=== PATIENT | male | born 1965 | race Two or more races ===

== ENCOUNTER 2022-05-07 13:19 | Inpatient (IN) | payer BC, SELFPAY ==
--- NOTE | ~2022-05-07 | CT_ITS ---
EXAMINATION: CT ABDOMEN AND PELVIS WITHOUT CONTRAST CLINICAL INFORMATION: Abdominal pain. Back pain. COMPARISON: None. TECHNIQUE: Multidetector volumetric imaging was performed from the superior aspect of the liver through the pubic symphysis. Sagittal and coronal reformatted images were obtained on the technologist's workstation. This CT examination was performed using dose optimization techniques as appropriate, variously including the following: *Automated exposure control *Adjustment of mA and/or kV according to patient size (this includes techniques or standardized protocols for targeted exams where dose is matched to indication/reason for exam; i.e. extremities or head) *Use of iterative reconstruction technique DLP: 387 mGy-cm FINDINGS: LUNG BASES: The visualized lung bases are unremarkable. LIVER, GALLBLADDER, AND BILIARY TREE: The liver is normal in size, shape, and attenuation. No focal hepatic lesion or biliary ductal dilatation is present. The gallbladder is unremarkable with no evidence of radiopaque gallstones, gallbladder wall thickening, or obvious pericholecystic inflammatory changes. PANCREAS: Unremarkable. SPLEEN: Unremarkable. ADRENAL GLANDS: Unremarkable. KIDNEYS AND URETERS: The kidneys are normal in size, shape, and attenuation. Right ureterovesicular junction stone measuring up to 0.3 cm with moderate proximal right-sided hydroureter nephrosis. Right periureteral and perinephric stranding. No additional renal or ureteral stone. BLADDER: Unremarkable. GASTROINTESTINAL TRACT: Small, sliding hiatal hernia. No bowel wall thickening or inflammatory change. No small or large bowel obstruction. Partially visualized, unremarkable appendix. PERITONEAL CAVITY: No intra-abdominal free air or free fluid. No intra-abdominal mass or organized fluid collection/abscess formation. ABDOMINAL WALL: No significant hernia is appreciated. LYMPH NODES: No significant lymphadenopathy. VASCULAR: No abdominal aortic dilatation. Scattered atherosclerotic calcifications. PELVIC VISCERA: Calcifications within the central prostate. OSSEOUS STRUCTURES: Unremarkable. CT/CT abdomen pelvis wo IV con IMPRESSION: 1. Obstructing right ureterovesicular junction stone measuring 0.3 cm with moderate proximal right-sided hydroureter nephrosis and periureteral/perinephric stranding. 2. No additional renal or ureteral stone. Unremarkable urinary bladder. 3. Small, sliding hiatal hernia. Fleischner guidelines were followed.
--- NOTE | ~2022-05-07 | FL_ITS ---
EXAMINATION: XR FL WITH IMAGES CLINICAL INFORMATION: Cystoscopy, ureteroscopy, laser and retrograde exam. COMPARISON: Previous CT of the abdomen and pelvis from yesterday. TECHNIQUE: Fluoroscopy performed by Dr. Jaspal Jaramillo. Fluoroscopy Time: 31 seconds. Cumulative Dose: 7.4 mGy. Images: 3. FINDINGS: Initial image demonstrates contrast opacification of the right ureter. Second image demonstrates a wire in the right ureter. Third image demonstrates an internal ureteral stent in the right ureter and bladder. FL/FL guidance in OR IMPRESSION: Fluoroscopy guidance for urologic procedure.
[2022-05-07 14:03] VITALS: BP 137/62; PULSE 54; RESP 20; TEMP 36.3; O2SAT 100; BMI 24.3
[2022-05-07 14:43] LABS: MANUAL DIFF FLAG NO
[2022-05-07 14:44] LABS: Basophils Absolute Auto 0.1 X10*3/uL (0.0-0.2); Basophils Percent Auto 0.3 % (0-2); Hematocrit 47.1 % (42.0-52.0); Hemoglobin 15.8 g/dl (14.0-18.0); Imm Gran Abs Auto 0.12 X10*3/uL (0.00-0.03); Imm Gran Pct Auto 0.6 % (0.0-0.4); Lymphocytes Percent Auto 9.6 % (20-40); Mean Corpuscular HGB Conc 33.5 g/dl (31.0-36.0); Mean Corpuscular Hemoglobin 29.6 pg (27.0-33.0); Mean Corpuscular Volume 88.2 fL (80.0-98.0); Mean Platelet Volume 8.6 fL (9.4-12.4); Monocytes Absolute Auto 0.9 X10*3/uL (0.1-1.2); Monocytes Percent Auto 4.2 % (2-11); Neutrophils Absolute Auto 17.9 x10*3/uL (2.0-8.3); Neutrophils Percent Auto 85.3 % (45-73); Platelet Count 367 X10*3/uL (160-400); Red Blood Count 5.34 X10*6/uL (4.60-5.80); Red Cell Distribution Width 14.1 % (11.0-16.0)
[2022-05-07 15:00] LABS: Alanine Aminotransferase 14 U/L (0-40); Albumin Level 4.4 g/dL (3.5-5.0); Alkaline Phosphatase 96 U/L (39-117); Anion Gap 19 (12-20); Aspartate Amino Transferase 17 U/L (5-37); Bilirubin Direct 0.3 mg/dL (0.0-0.5); Bilirubin Total 0.7 mg/dL (0.0-1.0); Blood Urea Nitrogen 20 mg/dL (9-16); Calcium 9.4 mg/dL (8.4-10.2); Carbon Dioxide 22 mmol/L (22-29); Chloride 105 mmol/L (96-108); Creatinine Clr Calc Pharmacy 69.4; Estimated Glomerular Filt Rate > 60; Glucose Random 156 mg/dL (60-115); Lipase 21 U/L (8-78); Potassium 4.5 mmol/L (3.3-5.1); Sodium 141 mmol/L (135-145); Total Protein 7.4 g/dL (6.5-8.0)
--- NOTE | 2022-05-07 18:55 | ED.GENADULT ---
HPI - General Adult General Chief complaint: Nausea/Vomiting/Diarrhea Stated complaint: Vomiting/Fever/Back pain Time Seen by Provider: 05/07/22 18:55 Source: patient Mode of arrival: ambulatory Limitations: no limitations History of Present Illness HPI narrative: Patient is a 56 year old male presenting to the emergency department today with right sided flank pain and nausea. Patient states that he has been having right sided flank pain since this morning with nausea. Patient states that he does not have a history of kidney stones. Patient states that he has already had his appendix removed. Patient denies any dizziness, lightheadedness, vomiting, fever, chills, blurry vision, double vision, loss of vision, chest pain, difficulty breathing, shortness of breath, night sweats, pain with urination, increased urinary frequency, increased urinary urgency, blood in his urine or stool, syncope or a near syncopal episode, recent trauma or falls, bowel incontinence, bladder incontinence, bowel retention, bladder retention, or any other complaints at this time. Onset (ago): hour(s) Location: abdomen Radiation: non-radiation Severity: mild Severity scale (1-10): 4 Quality: aching Pain Consistency: constant Relieving factors: none Exacerbating factors: none Associated symptoms: denies other symptoms Treatments prior to arrival: none Related Data Previous Rx's Medication Instructions Recorded naproxen 500 mg tablet 500 mg PO BID 7 days #14 tabs 05/07/22 tamsulosin 0.4 mg capsule 0.4 mg PO DAILY #7 caps 05/07/22 Allergies Allergy/AdvReac Type Severity Reaction Status Date / Time Penicillins [PENICILLINS] Allergy Unknown RASH Verified 05/07/22 14:06 Review of Systems Constitutional: Constitutional: Reports no additional constitutional complaints, Denies chills, Denies fever(s) and Denies night sweats Eyes: Eyes: Reports no additional eye complaints, Denies blurry vision, Denies change in vision, Denies diplopia, Denies eye discharge, Denies loss of vision and Denies eye pain ENT: Denies dizziness Cardiovascular: Cardiovascular: Reports no additional cardiovascular complaints, Denies chest pain, Denies lightheadedness, Denies Loss of Consciousness and Denies dyspnea Respiratory: Respiratory: Reports no additional respiratory complaints and Denies dyspnea Gastrointestinal: Gastrointestinal: Reports no additional gastrointestinal complaints, Reports abdominal pain (right sided flank pain), Denies melena, Denies hematochezia, Denies change in bowel habits and Denies change in stool character Genitourinary: Genitourinary: Reports no additional male genitourinary complaints, Denies hematuria, Denies oliguria, Denies difficulty urinating, Denies dysuria, Denies urinary frequency, Denies urinary hesitancy, Denies urinary incontinence and Denies urinary urgency Musculoskeletal: Musculoskeletal: Reports no additional musculoskeletal complaints, Denies numbness and Denies tingling Neurologic: Denies dizziness, Denies loss of vision, Denies numbness and Denies tingling Psychiatric: Psychiatric: Reports no additional psychiatric complaints Endocrine: Endocrine: Reports no additional endocrine complaints Hematologic/Lymphatic: Hematologic/Lymphatic: Reports no additional hematologic/lymphatic complaints Allergic/Immunologic: Allergic/Immunologic: Reports no additional allergic/immunologic complaints [facility] Past Medical History Attestation statement: The following information was validated with the patient. Source: old records reviewed Social History Social History Advance Directives: No Advance Directives Information Provided: No Physical Exam ED Vital Signs: Vital Signs - 24 hr 05/07/22 14:03 05/07/22 20:32 Temperature 97.4 F Pulse Rate 54 69 Respiratory Rate 20 16 Blood Pressure 137/62 139/72 Pulse Oximetry 100 98 Oxygen Delivery Method Room Air Room Air BMI result Body Mass Index 24.3 Const General: cooperative, no acute distress, alert and awake Nutritional Appearance: well nourished Orientation/consciousness: patient oriented x3 Limitations: no limitations [facility] Head: Yes normal to inspection and Yes atraumatic Ears: hearing grossly normal bilaterally and external ears normal General nose exam: Normal external nose present, no nasal discharge noted and no epistaxis Face and sinus: Yes normal facial exam, No abrasion and No laceration Mouth: Normal oral and palatal mucosa present, no drooling and no muffled voice Eyes General: appearance normal, both eyes and all related structures Periorbital: periorbital findings normal Eyelids: Yes eyelids normal Conjunctivae: conjunctivae normal Pupils: Equal, round and reactive pupils present EOM: EOMs intact bilaterally Neck Neck: Yes normal visual inspection, Yes full ROM and Yes no lymphadenopathy Chest Chest palpation & inspection: normal inspection of the chest Resp Effort & Inspection: normal respiratory effort and able to speak in complete sentences Auscultation: clear to auscultation bilaterally Cardio Rate: regular rate Rhythm: regular rhythm GI Inspection: Yes normal to inspection Palpation (GI): Soft to palpation, not firm, nontender, no guarding and not rigid General: Yes no CVA tenderness Back/Spine/Pelvis Back: no CVA tenderness Cervical Spine: normal cervical lordosis Thoracic/Lumbar Spine: thoracic and lumbar spine normal to inspection and thoraco-lumbar ROM normal Neuro General: patient oriented x3 and moves all extremities Cranial nerves: Yes Equal, round and reactive pupils present Cognition (Neuro): normal cognition Motor exam (neuro): 5/5 motor strength present throughout Sensory Exam: Normal double simultaneous stimulation for sensation Coordination: [id number] test normal Extrem General: Yes normal to inspection, Yes full ROM and Yes capillary refill normal Psych Appearance: grossly normal Mental Status: mental status grossly normal Affect: normal affect Attitude: cooperative Thought process: Normal thought process present Thought content: Normal thought content present Insight: Good insight present (Psych) Medical Decision Making MDM Narrative Medical decision making narrative: Patient is a 56 year old male presenting to the emergency department today with right sided flank pain. Patient's physical exam was unremarkable. Patient's blood work showed an elevated WBC count of 21 but was otherwise unremarkable. Patient's abdomen/pelvis CT showed an obstructing right ureterovesicular junction stone measuring 0.3cm with moderate proximal right-sided hydroureter nephrosis and periureteral/perinephric stranding. I spoke to Dr. Jaramillo, the urologist toll transmission worker, who recommended that as long as the patient can tolerate PO intake and his urine is not infected, he can be discharged with flomax and naproxen. I explained my physical exam findings as well as all test results to the patient. I answered all questions asked by the patient. Patient received IM Toradol and ODT Zofran which he stated helped his symptoms significantly. I stressed the importance of the patient taking his medication as prescribed. I stressed the importance of the patient following up with his primary care provider. I stressed the importance of the patient returning to the emergency department immediately if his symptoms were to worsen or if he were to develop any dizziness, shortness of breath, difficulty breathing, chest pain, blurry vision, loss of vision, nausea, vomiting, abdominal pain, fever, chills, back pain, or any other complaints. Patient verbalized agreement and understanding with this treatment plan and discharge. Medical Records Medical records reviewed: Yes I reviewed the patient's medical records. Lab Data Lab results reviewed: Yes I reviewed the patient's lab results. Result diagrams: 05/07/22 14:36 05/07/22 14:36 Labs: Lab Results 05/07/22 05/07/22 Range/Units 14:36 14:36 WBC 21.0 H (4.8-10.8) X10*3/uL RBC 5.34 (4.60-5.80) X10*6/uL Hgb 15.8 (14.0-18.0) g/dl Hct 47.1 (42.0-52.0) % MCV 88.2 (80.0-98.0) fL MCH 29.6 (27.0-33.0) pg MCHC 33.5 (31.0-36.0) g/dl RDW 14.1 (11.0-16.0) % Plt Count 367 (160-400) X10*3/uL MPV 8.6 L (9.4-12.4) fL Immature Gran % (Auto) 0.6 H (0.0-0.4) % Neut % (Auto) 85.3 H (45-73) % Lymph % (Auto) 9.6 L (20-40) % [place] % (Auto) 4.2 (2-11) % Eos % (Auto) 0.0 (0-4) % Baso % (Auto) 0.3 (0-2) % Lymph # (Auto) 2.0 (1.2-4.9) X10*3/uL [place] # (Auto) 0.9 (0.1-1.2) X10*3/uL Eos # (Auto) 0.0 (0.0-0.4) X10*3/uL Baso # (Auto) 0.1 (0.0-0.2) X10*3/uL Abs Immat Gran (auto) 0.12 H (0.00-0.03) X10*3/uL Absolute Neuts (auto) 17.9 H (2.0-8.3) x10*3/uL Absolute Nucleated RBC 0.000 (0.0-0.012) X10*3/uL Nucleated RBC % (auto) 0.0 (0.0-0.2) /100WBC Sodium 141 (135-145) mmol/L Potassium 4.5 (3.3-5.1) mmol/L Chloride 105 (96-108) mmol/L Carbon Dioxide 22 (22-29) mmol/L Anion Gap 19 (12-20) BUN 20 H (9-16) mg/dL Creatinine 1.11 (0.5-1.4) mg/dL Estim Creat Clear Calc 69.4 Estimated GFR > 60 Random Glucose 156 H (60-115) mg/dL Calcium 9.4 (8.4-10.2) mg/dL Total Bilirubin 0.7 (0.0-1.0) mg/dL Direct Bilirubin 0.3 (0.0-0.5) mg/dL AST 17 (5-37) U/L ALT 14 (0-40) U/L Alkaline Phosphatase 96 (39-117) U/L Total Protein 7.4 (6.5-8.0) g/dL Albumin 4.4 (3.5-5.0) g/dL Lipase 21 (8-78) U/L Imaging Data CT scan - abdomen: Attestation: I personally reviewed and interpreted this imaging study as follows: My impression: Right sided kidney stone. Radiologist's impression: EXAMINATION: CT ABDOMEN AND PELVIS WITHOUT CONTRAST? CLINICAL INFORMATION: Abdominal pain. Back pain.? COMPARISON: None.? TECHNIQUE: Multidetector volumetric imaging was performed from the superior aspect of the liver through the pubic symphysis. Sagittal and coronal reformatted images were obtained on the technologist's workstation.? This CT examination was performed using dose optimization techniques as appropriate, variously including the following: *Automated exposure control *Adjustment of mA and/or kV according to patient size (this includes techniques or standardized protocols for targeted exams where dose is matched to indication/reason for exam; i.e. extremities or head) *Use of iterative reconstruction technique DLP: 387 mGy-cm FINDINGS: LUNG BASES: The visualized lung bases are unremarkable.? LIVER, GALLBLADDER, AND BILIARY TREE: The liver is normal in size, shape, and attenuation. No focal hepatic lesion or biliary ductal dilatation is present. The gallbladder is unremarkable with no evidence of radiopaque gallstones, gallbladder wall thickening, or obvious pericholecystic inflammatory changes.? PANCREAS: Unremarkable.? SPLEEN: Unremarkable.? ADRENAL GLANDS: Unremarkable.? KIDNEYS AND URETERS: The kidneys are normal in size, shape, and attenuation. Right ureterovesicular junction stone measuring up to 0.3 cm with moderate proximal right-sided hydroureter nephrosis. Right periureteral and perinephric stranding. No additional renal or ureteral stone.? BLADDER: Unremarkable.? GASTROINTESTINAL TRACT: Small, sliding hiatal hernia. No bowel wall thickening or inflammatory change. No small or large bowel obstruction. Partially visualized, unremarkable appendix. PERITONEAL CAVITY: No intra-abdominal free air or free fluid. No intra-abdominal mass or organized fluid collection/abscess formation.? ABDOMINAL WALL: No significant hernia is appreciated.? LYMPH NODES: No significant lymphadenopathy. VASCULAR: No abdominal aortic dilatation. Scattered atherosclerotic calcifications. PELVIC VISCERA: Calcifications within the central prostate.? OSSEOUS STRUCTURES: Unremarkable.? CT/CT abdomen pelvis wo IV con IMPRESSION: 1. Obstructing right ureterovesicular junction stone measuring 0.3 cm with moderate proximal right-sided hydroureter nephrosis and periureteral/perinephric stranding. ? 2. No additional renal or ureteral stone. Unremarkable urinary bladder. ? 3. Small, sliding hiatal hernia.? ? Fleischner guidelines were followed. Dictated By: Ramakrishna Villatoro MD Signed By: Electronically signed by Ramakrishna Villatoro MD 05/07/222006 Discharge Plan Discharge Clinical Impression: Calculus, renal Patient Disposition: Home, Self-Care Instructions: Kidney Stones (ED) Additional Instructions: Follow up with your primary care provider and a urologist. Return to the emergency department immediately if your symptoms worsen or if you develop any dizziness, shortness of breath, difficulty breathing, chest pain, blurry vision, loss of vision, nausea, vomiting, abdominal pain, fever, chills, back pain, or any other complaints. Prescriptions: New naproxen 500 mg tablet 500 mg PO BID 7 Days Qty: 14 0RF tamsulosin 0.4 mg capsule 0.4 mg PO DAILY Qty: 7 0RF Referrals: [facility] [place] Group] (Call to establish and follow up with a primary care provider. If you already have a primary care provider, please call to follow up with them. ) [facility] [place], [facility] [Provider Group] (Call to establish and follow up with a primary care provider. If you already have a primary care provider, please call to follow up with them. ) [facility] [place] [facility] [Provider Group] (Call to establish and follow up with a primary care provider. If you already have a primary care provider, please call to follow up with them. ) [facility] [place] Urology Services [Provider Group] (Call to establish and follow up with a urologist.) Stand Alone Forms: Work/School Release Print Language: French
[2022-05-07] MEDS: Ondansetron ODT 4 MG TAB.RAPDIS TRANSLINGU (19:22)
[2022-05-07] MEDS: Ketorolac Tromethamine 15 MG/ML VIAL IM (19:22)
[2022-05-07 20:32] VITALS: BP 139/72; PULSE 69; RESP 16; O2SAT 98
[2022-05-08] VITALS (17 sets, daily range): BP systolic 87–146; BP diastolic 48–84; PULSE 56–79; RESP 12–30; TEMP 36.3–36.8; O2SAT 95–99; BMI 24.3
[2022-05-08 00:37] LABS: Appearance Urine Turbid; Color Urine Dark Yellow; Glucose Urine UA Negative (Negative); Leukocyte Esterase Urine Negative (Negative); Nitrite Urine Negative (Negative); PH 5.5 (5.0-9.0); Specific Gravity - Urine >= 1.030 (1.005-1.025); Urine Blood Large (3+) (Negative); Urine Ketones 15 mg/dL (Negative); Urine Protein 30 (1+) mg/dL (Neg-Trace)
[2022-05-08 00:47] LABS: Bacteria Urine None Seen (None Seen); Hyaline Casts Urine 0-2 /LPF (0-2); RBC Urine >20 /HPF (0-2); Squamous Epithelial Cell Urine 0-2 /HPF (0-2); WBC Urine 0-5 /HPF (0-5)
--- NOTE | 2022-05-08 01:21 | PC.NURSE ---
pt a&o, no sob or chest pain. Lab collected and sent. 20g IV placed in right AC.
--- NOTE | 2022-05-08 01:24 | P.HPHOSP_ITS ---
History of Present Illness Date of Service: 05/08/22 Chief Complaint: abd pain, n/v 56-year-old male with no significant past medical history presents to the hospital with complaints of right-sided flank pain, nausea and vomiting. Patient reports his symptoms started day of presentation, associated with significant nausea vomiting, decreased p.o. intake. Patient reports the pain to be 10/10, radiating to the groin, not relieved with [id number] pain medications, denies any fever or chills, reports no urinary urgency dysuria, or frequency. Patient denies any shortness of breath, no chest pain, no diarrhea constipation, and no lower extremity edema. No headache or change in vision. On arrival to the ED patient hemodynamically stable, afebrile, Labs are significant for WBC count of 21, hematocrit of 47.1, lactic acid of 2.2 that resolved after IV fluids, UA that is negative for any acute infection but is positive for RBC CT of the abdomen pelvis shows obstructing right UVJ stone measuring 0.3 cm with moderate proximal right-sided hydronephrosis and periureteral perinephric stranding Patient will be admitted for further management Review of Systems Review of Systems: Yes all other systems are reviewed and are negative PMFSH Medical History (Updated 05/08/22 @ 06:40 by Marcus Che MD) No pertinent past medical history Family History (Updated 05/08/22 @ 06:41 by Marcus Che MD) Other Cancer Pertinent family history: he does not know what type of cancer his mother had Surgical History (Updated 05/08/22 @ 06:40 by Marcus Che MD) No pertinent past surgical history Social History Advance Directives: No Advance Directives Information Provided: No Meds Allergies Allergy/AdvReac Type Severity Reaction Status Date / Time Penicillins [PENICILLINS] Allergy Unknown RASH Verified 05/07/22 14:06 Active Medications: Current Medications Acetaminophen (Acetaminophen 325 Mg Tablet) 650 mg PO Q6H PRN PRN Reason: Pain, Mild (Pain Scale 1-3) Docusate Sodium (Docusate Sodium 100 Mg Capsule) 100 mg PO DAILY PRN PRN Reason: Constipation Sodium Chloride (Ns) 1,000 mls @ 999 mls/hr IV .Q1H1M LILLIAN Stop: 05/08/22 02:00 Lactated Ringer's (Lr) 1,000 mls @ 100 mls/hr IVCONT .Q10H LILLIAN Morphine Sulfate (Morphine Sulfate 4 Mg/Ml Cartridge) 4 mg IVPUSH Q4H PRN; Protocol PRN Reason: Pain, Severe (Pain Scale 7-10) Ondansetron HCl (Ondansetron Hcl 4 Mg/2 Ml Vial) 4 mg IVPUSH Q8H PRN PRN Reason: Nausea and Vomiting Prochlorperazine Edisylate (Prochlorperazine Edisylate 10 Mg/2 Ml Vial) 5 mg IVPUSH Q4H PRN PRN Reason: Nausea and Vomiting Sodium Chloride (0.9 % Sodium Chloride Flush 3 Ml Syringe) 3 ml IVFLUSH QSHIFT [facility] Physical Exam Vital Signs and Narrative: Vital Signs: Last Vital Signs Temp 97.4 F 05/07/22 14:03 Pulse 69 05/07/22 20:32 Resp 16 05/07/22 20:32 BP 139/72 05/07/22 20:32 Pulse Ox 98 05/07/22 20:32 O2 Del Method 05/07/22 20:32 BMI result Body Mass Index 24.3 Const: General: cooperative and no acute distress Orientation/consciousness: patient oriented x3 Eyes: General: appearance normal, both eyes and all related structures Pupils: Equal, round and reactive pupils present Resp: Effort & Inspection: normal respiratory effort Auscultation: clear to auscultation bilaterally Cardio: Rate: regular rate Rhythm: regular rhythm GI: Palpation (GI): Soft to palpation Auscultation: normal bowel sounds : Other: Right CVA tenderness Skin: General skin exam: no rashes or lesions noted Neuro: General: patient oriented x3 Cranial nerves: Yes Equal, round and reactive pupils present Cognition (Neuro): normal cognition Extrem: General: Yes normal to inspection and Yes no pedal edema Results Labs CBC and Chem 7: 05/08/22 06:10 05/07/22 14:36 Labs: Laboratory Results - last 24 hr 05/07/22 05/07/22 05/08/22 14:36 14:36 00:31 MCV 88.2 MCH 29.6 MCHC 33.5 RDW 14.1 Plt Count 367 MPV 8.6 L Immature Gran % (Auto) 0.6 H Neut % (Auto) 85.3 H Lymph % (Auto) 9.6 L [place] % (Auto) 4.2 Eos % (Auto) 0.0 Baso % (Auto) 0.3 Lymph # (Auto) 2.0 [place] # (Auto) 0.9 Eos # (Auto) 0.0 Baso # (Auto) 0.1 Abs Immat Gran (auto) 0.12 H Absolute Neuts (auto) 17.9 H Absolute Nucleated RBC 0.000 Nucleated RBC % (auto) 0.0 Anion Gap 19 Estim Creat Clear Calc 69.4 Estimated GFR > 60 Random Glucose 156 H Calcium 9.4 Total Bilirubin 0.7 Direct Bilirubin 0.3 AST 17 ALT 14 Alkaline Phosphatase 96 Total Protein 7.4 Albumin 4.4 Lipase 21 Urine Color Dark Yellow Urine Appearance Turbid Urine pH 5.5 Ur Specific [place] >= 1.030 H Urine Protein 30 (1+) H Urine Glucose (UA) Negative Urine Ketones 15 Urine Blood Large (3+) H Urine Nitrite Negative Ur Leukocyte Esterase Negative Urine RBC >20 H Urine WBC 0-5 Ur Squamous Epith Cells 0-2 Urine Bacteria None Seen Hyaline Casts 0-2 Imaging Radiologist's Impressions: Impressions Abdomen/Pelvis CT 05/07/22 19:52 IMPRESSION: 1. Obstructing right ureterovesicular junction stone measuring 0.3 cm with moderate proximal right-sided hydroureter nephrosis and periureteral/perinephric stranding. 2. No additional renal or ureteral stone. Unremarkable urinary bladder. 3. Small, sliding hiatal hernia. Fleischner guidelines were followed. Assessment and Plan (1) Urinary tract obstruction by kidney stone: Status: Acute (2) Acute flank pain: Status: Acute (3) Intractable nausea and vomiting: Status: Acute Plan 56-year-old male with no significant past medical history presents to the hospital with complaints of right flank pain found to have an obstructing kidney stone, intractable nausea # obstructing kidney stone - 0.3 cm kidney stone obstructing at the UVJ causing hydroureteronephrosis as well as perinephric stranding concerning for pyelo - UA is negative for any evidence of acute infection - at this time will treat with IV antibiotics for high potential of Infection given the obstruction - IV fluids - urology consulted # acute flank pain - secondary to above - treat with IV antibiotics - pain medication # intractable nausea vomiting - likely secondary to above - abdominal CT negative for any acute abnormality in the abdomen - will treat with IV antiemetics - IV fluids - supportive measures DVT prophylaxis: Early ambulation Quality Stroke Does the patient have a stroke diagnosis?: No VTE Prior VTE?: No VTE Risk Level:: Medical - low VTE Device Contraindication: Treatment Not Tolerated VTE Drug Contraindication: Treatment Not Tolerated
[2022-05-08] MEDS: diphenhydrAMINE HCL 50 MG/ML VIAL 25 MG IVPUSH (01:52)
[2022-05-08 01:53] LABS: Lactic Acid 2.2 mmol/L (0.5-2.0)
[2022-05-08] MEDS: Tamsulosin HCL 0.4 MG CAPSULE PO ×2 (01:53→21:51)
[2022-05-08] MEDS: Morphine Sulfate 4 MG/ML CARTRIDGE IVPUSH ×3 (01:53→22:01)
[2022-05-08] MEDS: predniSONE 20 MG TABLET PO (01:53)
[2022-05-08] MEDS: 0.9 % Sodium Chloride 1,000 ML 999 ML IV (02:10)
[2022-05-08] MEDS: cefTRIAXone sodium 1 GM in 0.9 % Sodium Chloride 50 ML IV (02:16)
[2022-05-08] MEDS: Lactated Ringers 1,000 ML 100 ML IVCONT ×2 (02:52→21:44)
[2022-05-08 03:26] LABS: Reflex Lactate? Lactic Acid Added
[2022-05-08 03:48] LABS: COVID-19 Test Negative (Negative)
[2022-05-08 03:50] LABS: ~Lactic Acid-LAB USE ONLY 0.9 mmol/L (0.5-2.0)
[2022-05-08 06:14] LABS: MANUAL DIFF FLAG NO
[2022-05-08 06:16] LABS: Basophils Percent Auto 0.1 % (0-2); Hematocrit 42.7 % (42.0-52.0); Hemoglobin 14.5 g/dl (14.0-18.0); Imm Gran Abs Auto 0.08 X10*3/uL (0.00-0.03); Imm Gran Pct Auto 0.6 % (0.0-0.4); Lymphocytes Absolute Auto 1.9 X10*3/uL (1.2-4.9); Lymphocytes Percent Auto 13.5 % (20-40); Mean Corpuscular Hemoglobin 29.8 pg (27.0-33.0); Mean Corpuscular Volume 87.7 fL (80.0-98.0); Mean Platelet Volume 8.4 fL (9.4-12.4); Monocytes Absolute Auto 1.2 X10*3/uL (0.1-1.2); Monocytes Percent Auto 8.5 % (2-11); Neutrophils Percent Auto 77.3 % (45-73); Platelet Count 284 X10*3/uL (160-400); Red Blood Count 4.87 X10*6/uL (4.60-5.80); Red Cell Distribution Width 14.1 % (11.0-16.0); White Blood Count 14.2 X10*3/uL (4.8-10.8)
[2022-05-08 06:44] LABS: Anion Gap 12 (12-20); Blood Urea Nitrogen 22 mg/dL (9-16); Calcium 8.7 mg/dL (8.4-10.2); Carbon Dioxide 24 mmol/L (22-29); Chloride 107 mmol/L (96-108); Creatinine Clr Calc Pharmacy 55.4; Estimated Glomerular Filt Rate 53; Glucose Random 103 mg/dL (60-115); Potassium 4.4 mmol/L (3.3-5.1); Sodium 139 mmol/L (135-145)
--- NOTE | 2022-05-08 07:33 | PHA.MEDREC ---
Pharmacy Consult ? Medication Reconciliation Pharmacy has completed the medication reconciliation. Reviewed med rec done overnight
--- NOTE | 2022-05-08 08:21 | PM.EVENT ---
Event Note Date of Service: 05/08/22 Event Note: Saw this 56-year-old male as follow-up after admission. Patient states his pain is well controlled currently. Was lying in ER bed in no distress. All 13 review of systems reviewed patient is cooperative and in no distress he is awake, alert and oriented x4 equal breath sounds without wheezes or crackles regular rate and rhythm, S1-S2 heard right CVA tenderness present no pedal edema assessment plan: * Right UV junction obstructing stone with stranding - continue IV antibiotics Rocephin - add tamsulosin and treat with analgesics p.r.n. - urology evaluation pending Obstructing right ureterovesicular junction stone measuring 0.3 cm with moderate proximal right-sided hydroureter nephrosis and periureteral/perinephric stranding.
--- NOTE | 2022-05-08 11:54 | MHC.CM.PN ---
Addendum entered by Kim Penn 05/08/22 12:11: PATIENT BECOMES INPATIENT- IMM ADDRESSED WITH PATIENT. ORIGINAL TO PATIENT/COPY TO CHART. Original Note: [place] ADDRESSED WITH PATIENT. YELLOW COPY TO PATIENT/ORIGINAL FILED IN CHART. PATIENT LIVES WITH FAMILY NO HCP- EDUCATED, DECLINED TO COMPLETE AT THIS TIME PATIENT REPORTS HE IS INDEPENDENT AT HOME AND COMMUNITY DENIES USE OF DME OR RECEIVING HOME SERVICES COVID VAX'D X2 NO PCP AT THIS TIME FAMILY WILL TRANSPORT HOME D/C PLAN: HOME SELF-CARE
[2022-05-08] MEDS: fentaNYL citrate/PF 100 MCG/2 ML VIAL 25 MCG IVPUSH (16:12)
--- NOTE | 2022-05-08 16:50 | MHC.SHP ---
Pre-Procedural Eval Section A Date of Service: 05/08/22 The patient is an INPATIENT: No Changes since office visit: No Cold of Flu in the past 2 weeks, No New Medical Problems, No Changes in Medication and No Patient answered all questions The History & Physical has been completed within 30 days and I have reviewed it.: Yes Section B Chief Complaint: Vomiting/Fever/Back pain Details of Present Illness: Distal right ureteric stone Allergies: Allergies Allergy/AdvReac Type Severity Reaction Status Date / Time Penicillins [PENICILLINS] Allergy Unknown RASH Verified 05/07/22 14:06 Plan Diagnosis/Plan: Unchanged (Cystoscopy, right retrograde, right ureteroscopy with laser lithotripsy and stent placement) I have reviewed the history and physical and performed a pertinent physical examination on my patient. No changes have occurred unless specified.
--- NOTE | 2022-05-08 16:56 | P.CONAN_ITS ---
HPI - Anesthesia Eval Consult details Narrative: 56 M for cystoscopy vallejo s palsy left , GERD , smoker PMF Active Problems Active Problems: All Active Problems (Updated 05/08/22 @ 06:40 by Marcus Che MD) Intractable nausea and vomiting (Acute) Urinary tract obstruction by kidney stone (Acute) Calculus, renal (Acute) Nausea & vomiting (Acute) Acute flank pain (Acute) Past Medical History Medical History (Updated 05/08/22 @ 06:40 by Marcus Che MD) No pertinent past medical history Family History Family History (Updated 05/08/22 @ 06:41 by Marcus Che MD) Other Cancer Family history of problems with anesthesia: No Surgical History Surgical History (Updated 05/08/22 @ 06:40 by Marcus Che MD) No pertinent past surgical history History of Problems with Anesthesia: No Social History Social History service: No Current occupational status: unemployed Meds Allergies Allergy/AdvReac Type Severity Reaction Status Date / Time Penicillins [PENICILLINS] Allergy Unknown RASH Verified 05/07/22 14:06 Active Medications: Current Medications Acetaminophen (Acetaminophen 325 Mg Tablet) 650 mg PO Q6H PRN PRN Reason: Pain, Mild (Pain Scale 1-3) Docusate Sodium (Docusate Sodium 100 Mg Capsule) 100 mg PO DAILY PRN PRN Reason: Constipation Lactated Ringer's (Lr) 1,000 mls @ 100 mls/hr IVCONT .Q10H [facility] Last Admin: 05/08/22 02:52 Dose: 100 mls/hr Ceftriaxone Sodium 1 gm/ (Sodium Chloride) 50 mls @ 100 mls/hr IV Q24H [facility] Morphine Sulfate (Morphine Sulfate 4 Mg/Ml Cartridge) 4 mg IVPUSH Q4H PRN; Protocol PRN Reason: Pain, Severe (Pain Scale 7-10) Last Admin: 05/08/22 11:54 Dose: 4 mg Ondansetron HCl (Ondansetron Hcl 4 Mg/2 Ml Vial) 4 mg IVPUSH Q8H PRN PRN Reason: Nausea and Vomiting Prochlorperazine Edisylate (Prochlorperazine Edisylate 10 Mg/2 Ml Vial) 5 mg IVPUSH Q4H PRN PRN Reason: Nausea and Vomiting Sodium Chloride (0.9 % Sodium Chloride Flush 3 Ml Syringe) 3 ml IVFLUSH QSHIFT [facility] [place] Last Admin: 05/08/22 07:22 Dose: Not Given Tamsulosin HCl (Tamsulosin Hcl 0.4 Mg Capsule) 0.4 mg PO BEDTIME [facility] [place] Exam Exam Date and Time: May 08, 2022 1656 Height,Weight and Vital Signs: Height 5 ft 7 in Weight 70.3 kg Last Vital Signs Temp 98.3 F 05/08/22 16:15 Pulse 76 05/08/22 16:17 Resp 12 05/08/22 16:17 BP 135/67 05/08/22 16:17 Pulse Ox 97 05/08/22 16:17 O2 Del Method 05/08/22 16:17 Pertinent Lab Results Pertinent Lab Results: Laboratory Tests 05/07/22 05/07/22 05/08/22 14:36 14:36 00:31 WBC 21.0 H RBC 5.34 Hgb 15.8 Hct 47.1 MCV 88.2 MCH 29.6 MCHC 33.5 RDW 14.1 Plt Count 367 MPV 8.6 L Immature Gran % (Auto) 0.6 H Neut % (Auto) 85.3 H Lymph % (Auto) 9.6 L [place] % (Auto) 4.2 Eos % (Auto) 0.0 Baso % (Auto) 0.3 Lymph # (Auto) 2.0 [place] # (Auto) 0.9 Eos # (Auto) 0.0 Baso # (Auto) 0.1 Abs Immat Gran (auto) 0.12 H Absolute Neuts (auto) 17.9 H Absolute Nucleated RBC 0.000 Nucleated RBC % (auto) 0.0 Sodium 141 Potassium 4.5 Chloride 105 Carbon Dioxide 22 Anion Gap 19 BUN 20 H Creatinine 1.11 Estim Creat Clear Calc 69.4 Estimated GFR > 60 Random Glucose 156 H Lactic Acid Lactic Acid F/U @ 2Hr Calcium 9.4 Total Bilirubin 0.7 Direct Bilirubin 0.3 AST 17 ALT 14 Alkaline Phosphatase 96 Total Protein 7.4 Albumin 4.4 Lipase 21 Urine Color Dark Yellow Urine Appearance Turbid Urine pH 5.5 Ur Specific [place] >= 1.030 H Urine Protein 30 (1+) H Urine Glucose (UA) Negative Urine Ketones 15 Urine Blood Large (3+) H Urine Nitrite Negative Ur Leukocyte Esterase Negative Urine RBC >20 H Urine WBC 0-5 Ur Squamous Epith Cells 0-2 Urine Bacteria None Seen Hyaline Casts 0-2 COVID-19 (DAMIAN) COVID-19 Clin Com 05/08/22 05/08/22 05/08/22 01:24 03:28 03:33 WBC RBC Hgb Hct MCV MCH MCHC RDW Plt Count MPV Immature Gran % (Auto) Neut % (Auto) Lymph % (Auto) [place] % (Auto) Eos % (Auto) Baso % (Auto) Lymph # (Auto) [place] # (Auto) Eos # (Auto) Baso # (Auto) Abs Immat Gran (auto) Absolute Neuts (auto) Absolute Nucleated RBC Nucleated RBC % (auto) Sodium Potassium Chloride Carbon Dioxide Anion Gap BUN Creatinine Estim Creat Clear Calc Estimated GFR Random Glucose Lactic Acid 2.2 H* Lactic Acid F/U @ 2Hr 0.9 Calcium Total Bilirubin Direct Bilirubin AST ALT Alkaline Phosphatase Total Protein Albumin Lipase Urine Color Urine Appearance Urine pH Ur Specific [place] Urine Protein Urine Glucose (UA) Urine Ketones Urine Blood Urine Nitrite Ur Leukocyte Esterase Urine RBC Urine WBC Ur Squamous Epith Cells Urine Bacteria Hyaline Casts COVID-19 (DAMIAN) Negative COVID-19 Clin Com See Note 05/08/22 05/08/22 06:10 06:10 WBC 14.2 H RBC 4.87 Hgb 14.5 Hct 42.7 MCV 87.7 MCH 29.8 MCHC 34.0 RDW 14.1 Plt Count 284 MPV 8.4 L Immature Gran % (Auto) 0.6 H Neut % (Auto) 77.3 H Lymph % (Auto) 13.5 L [place] % (Auto) 8.5 Eos % (Auto) 0.0 Baso % (Auto) 0.1 Lymph # (Auto) 1.9 [place] # (Auto) 1.2 Eos # (Auto) 0.0 Baso # (Auto) 0.0 Abs Immat Gran (auto) 0.08 H Absolute Neuts (auto) 11.0 H Absolute Nucleated RBC 0.000 Nucleated RBC % (auto) 0.0 Sodium 139 Potassium 4.4 Chloride 107 Carbon Dioxide 24 Anion Gap 12 BUN 22 H Creatinine 1.39 Estim Creat Clear Calc 55.4 Estimated GFR 53 Random Glucose 103 Lactic Acid Lactic Acid F/U @ 2Hr Calcium 8.7 D Total Bilirubin Direct Bilirubin AST ALT Alkaline Phosphatase Total Protein Albumin Lipase Urine Color Urine Appearance Urine pH Ur Specific [place] Urine Protein Urine Glucose (UA) Urine Ketones Urine Blood Urine Nitrite Ur Leukocyte Esterase Urine RBC Urine WBC Ur Squamous Epith Cells Urine Bacteria Hyaline Casts COVID-19 (DAMIAN) COVID-19 Clin Com Airway Mallampati Class: III TM Dist: >3cm Neck ROM: Full Loose/Missing/Broken Teeth: Yes (Multiple chipped and missing teeth , poor dentition ) Heart: S1,S2 Lungs: b/l breath sounds Assessment and Plan Assessment Anesthesia Assessment: Anesthesia Plan Discussed and Chart Reviewed Final Anesthetic Review Family History of Problems with Anesthesia: No History of Problems with Anesthesia: No NPO: Yes ASA Class: II and Emergency Final Preanesthetic Review: Meds/Allgs Chart Reviewed, Consent Obtained/Reviewed and Anes Risks/Benef Reviewed Patient Risk: Intermediate Procedure Risk: Intermediate Anesthetic Plan Anesthetic Plan: GA Disposition: Standard PACU
--- NOTE | 2022-05-08 18:24 | W.PM.OPN ---
Operative Note Operative Note Date of Service: 05/08/22 Narrative: PreOperative Diagnosis: Distal right ureteric stone Post Operative Diagnosis: Distal right ureteric stone Procedure: - cystoscopy, right retrograde - right dilatation of ureteric orifice under fluoroscopy - right ureteroscopy - right stent placement Surgeon: Dr Jaspal Jaramillo Anesthesia: General Indications for procedure: Distal right ureteric stone with right hydroureteronephrosis Procedure: After informed consent was verified patient was brought to the operating placed in supine position. Anesthesia was administered per protocol. Patient was placed in modified dorsal lithotomy position and prepped and draped in a sterile fashion. Safety pause time-out and side of surgery confirmed. Antibiotics confirmed. A 22 Gabonese cystoscope was inserted per urethra. Bladder was normal in its entirety. Both ureteric orifices were in normal position. The right ureteric orifice was cannulated and a retrograde examination was performed. Proximal right hydroureteronephrosis no clear filling defect . A Sensor guidewire was placed up to the level of the renal pelvis under fluoroscopy. The rigid cystoscope was removed. A Florence dilator was placed over the Sensor guidewire and used to dilate the ureteric orifice under fluoroscopy. The dilator was removed. The semi rigid ureteral scope was placed alongside the Sensor guidewire. Small stone was encountered that was so small could not be basketed. There was no other obstruction. Rigid scope was removed in the small stone fell and the bladder. Decision was made to place a stent. The stent was backloaded on the cystoscope after the rigid ureteral scope was removed. A 6 Gabonese by 24 cm double-J stent was placed into the renal pelvis and bladder under a combination of fluoroscopy and direct visualization. The bladder was emptied. The patient tolerated the procedure well and was extubated in the operating room, and transferred in stable condition to the recovery area. Pathology: None Drains: Stent as above
[2022-05-09] VITALS: BP 111/71; PULSE 59; RESP 18; TEMP 36.6; O2SAT 97
[2022-05-09] MEDS: cefTRIAXone sodium 1 GM in 0.9 % Sodium Chloride 50 ML IV (02:37)
[2022-05-09] MEDS: Phenazopyridine HCL 100 MG TABLET PO (02:37)
--- NOTE | 2022-05-09 02:43 | PC.NURSE ---
Addendum entered by Shawnee Byrnes RN 05/09/22 06:13: pt able to urinate small amounts of dark blood tinged urine at a time. bladder scan for 443. Original Note: s/p stent placement pt c/o extreme pain when attempting to urinate, pt feels the urge to go but states he feels like he holds back due to pain, when pt is able to pass some urine blood clots are present, bladder scan shows 999ml. pt wishes to attempt to void before any further action is taken. will continue to monitor
[2022-05-09] MEDS: Morphine Sulfate 4 MG/ML CARTRIDGE IVPUSH ×2 (03:01→08:45)
[2022-05-09 04:00] VITALS: BP 112/75; PULSE 61; RESP 16; TEMP 36.8; O2SAT 95
[2022-05-09 05:23] VITALS: BMI 24.3
[2022-05-09 06:39] LABS: MANUAL DIFF FLAG NO
[2022-05-09 06:44] LABS: Basophils Percent Auto 0.2 % (0-2); Eosinophils Percent Auto 0.2 % (0-4); Hematocrit 40.8 % (42.0-52.0); Hemoglobin 13.5 g/dl (14.0-18.0); Imm Gran Abs Auto 0.04 X10*3/uL (0.00-0.03); Imm Gran Pct Auto 0.3 % (0.0-0.4); Lymphocytes Absolute Auto 2.4 X10*3/uL (1.2-4.9); Lymphocytes Percent Auto 17.9 % (20-40); Mean Corpuscular HGB Conc 33.1 g/dl (31.0-36.0); Mean Corpuscular Hemoglobin 29.7 pg (27.0-33.0); Mean Corpuscular Volume 89.7 fL (80.0-98.0); Mean Platelet Volume 8.9 fL (9.4-12.4); Monocytes Percent Auto 7.3 % (2-11); Neutrophils Absolute Auto 9.8 x10*3/uL (2.0-8.3); Neutrophils Percent Auto 74.1 % (45-73); Platelet Count 269 X10*3/uL (160-400); Red Blood Count 4.55 X10*6/uL (4.60-5.80); Red Cell Distribution Width 14.4 % (11.0-16.0); White Blood Count 13.1 X10*3/uL (4.8-10.8)
[2022-05-09 06:59] LABS: Anion Gap 12 (12-20); Blood Urea Nitrogen 21 mg/dL (9-16); Calcium 8.9 mg/dL (8.4-10.2); Carbon Dioxide 28 mmol/L (22-29); Chloride 105 mmol/L (96-108); Creatinine Clr Calc Pharmacy 71.4; Estimated Glomerular Filt Rate > 60; Glucose Random 94 mg/dL (60-115); Potassium 4.6 mmol/L (3.3-5.1); Sodium 140 mmol/L (135-145)
[2022-05-09] MEDS: Lactated Ringers 1,000 ML 100 ML IVCONT (07:45)
[2022-05-09 08:00] VITALS: BP 120/85; PULSE 70; RESP 18; TEMP 37.1; O2SAT 98
--- NOTE | 2022-05-09 09:02 | HO.POSTANES ---
Post Anesthesia Evaluation Post Anesthesia Evaluation Vital Signs: Vital Signs Temp Pulse Resp BP Pulse Ox O2 Del Method 05/09/22 08:00 98.7 F 70 18 120/85 98 Room Air 05/09/22 04:00 98.3 F 61 16 112/75 95 Room Air 05/09/22 00:00 97.9 F 59 18 111/71 97 Room Air Anesthesia: General Mental Status: Awake Pain Control: Satisfactory Nausea/Vomiting: None Hydration: Adequate Anesthesia-Related Issues: No Anes. Related Issues
--- NOTE | 2022-05-09 10:23 | PM.DS ---
DS: Providers Provider Date of Service: 05/09/22 Date of admission: 05/08/22 01:03 Primary care physician: None Physician DS: Diagnosis Discharge Diagnosis (1) Acute flank pain: Status: Acute (2) Intractable nausea and vomiting: Status: Acute (3) Calculus of distal right ureter: Status: Acute (4) Hydroureter, right: Status: Acute DS: Summary Hospital Course Hospital Course: 56-year-old male with no significant past medical history presents to the hospital with complaints of right flank pain found to have an obstructing kidney stone # Distal right ureteric stone with right hydronephrosis Patient was admitted and resuscitated with IV crystalloids. Urology was consulted and patient underwent cystoscopy with right dilatation of ureteric orifice with right ureteroscopy and right stent placement. Patient with significant improvement in symptoms prior to discharge. Will follow up with Dr. Jaspal Jaramillo, urology in 1 week for outpatient stent removal. Patient stable to be discharged with p.o. pain medications to be used p.r.n.. UA without evidence of infection at the time of admission. Status at Discharge Functional status at discharge: independent ambulation Overall status at discharge: patient is progressing back to baseline Time Spent with Patient Time attestation: Total time spent providing and/or coordinating discharge services: Discharge coordination time: Less than 30 minutes Quality: Safe Use of Opioids Does Pt have an Active Cancer Diagnosis on the Problem List?: No Quality: Stroke Does the patient have a stroke diagnosis?: No Physical Exam Vital Signs: Vital Signs: Last Vital Signs Temp 98.7 F 05/09/22 08:00 Pulse 70 05/09/22 08:00 Resp 18 05/09/22 08:00 BP 120/85 05/09/22 08:00 Pulse Ox 98 05/09/22 08:00 O2 Del Method 05/09/22 08:00 O2 Flow Rate 4 05/08/22 17:48 BMI result Body Mass Index 24.3 Const:?? General: cooperati ve and no acute di stress? Orientatio n/consciousness: p atient oriented x3 Eyes:?? General: appearanc e normal, both eye s and all related structures? Pupils : Equal, round and reactive pupils p resent Resp:?? Effort & Inspectio n: normal respirat ory effort? Auscul tation: clear to a uscultation bilate rally Cardio:?? Rate: regular rate ? Rhythm: regular rhythm GI:?? Palpation (GI): So ft to palpation? A uscultation: mart l bowel sounds :?? Other: No CVA tend erness Skin:?? General skin exam: no rashes or lesi ons noted Neuro:?? General: patient o riented x3? Crania l nerves: Yes Equa l, round and react leidy pupils present ? Cognition (Neuro ): normal cognitio n Extrem:?? General: Yes mart l to inspection an d Yes no pedal mark alissa DS: Data Data Completed and Pending Labs on day of discharge: Laboratory Results - last 24 hr 05/09/22 05/09/22 06:18 06:18 WBC 13.1 H RBC 4.55 L Hgb 13.5 L Hct 40.8 L MCV 89.7 MCH 29.7 MCHC 33.1 RDW 14.4 Plt Count 269 MPV 8.9 L Immature Gran % (Auto) 0.3 Neut % (Auto) 74.1 H Lymph % (Auto) 17.9 L [place] % (Auto) 7.3 Eos % (Auto) 0.2 Baso % (Auto) 0.2 Lymph # (Auto) 2.4 [place] # (Auto) 1.0 Eos # (Auto) 0.0 Baso # (Auto) 0.0 Abs Immat Gran (auto) 0.04 H Absolute Neuts (auto) 9.8 H Absolute Nucleated RBC 0.000 Nucleated RBC % (auto) 0.0 Sodium 140 Potassium 4.6 Chloride 105 Carbon Dioxide 28 Anion Gap 12 BUN 21 H Creatinine 1.08 Estim Creat Clear Calc 71.4 Estimated GFR > 60 Random Glucose 94 Calcium 8.9 Preliminary micro results at discharge 05/08/22 02:06 Blood Culture - Preliminary Blood - Venous No growth after 24 hours. 05/08/22 02:06 Blood Culture - Preliminary Blood - Venous No growth after [address] scan - abdomen: Radiologist's impression: ITS Impressions Abdomen/Pelvis CT 05/07/22 19:52 IMPRESSION: 1. Obstructing right ureterovesicular junction stone measuring 0.3 cm with moderate proximal right-sided hydroureter nephrosis and periureteral/perinephric stranding. 2. No additional renal or ureteral stone. Unremarkable urinary bladder. 3. Small, sliding hiatal hernia. Fleischner guidelines were followed. Guidance Fluoroscopy 05/08/22 17:38 IMPRESSION: Fluoroscopy guidance for urologic procedure. Discharge Plan Discharge Patient Disposition: Home, Self-Care Discharge Diagnosis: Distal ureteric stone [place] [facility] [place]] (Call to establish and follow up with a primary care provider. If you already have a primary care provider, please call to follow up with them. ) [facility] [place] [Provider Group] (Call to establish and follow up with a primary care provider. If you already have a primary care provider, please call to follow up with them. ) [facility] [place]Provider Group] (Call to establish and follow up with a primary care provider. If you already have a primary care provider, please call to follow up with them. ) [facility] [place] [facility] [Provider Group] (Call to establish and follow up with a urologist.) Jaspal Jaramillo MD [Physician] - 1 Week Physician,None [Primary Care Provider] - None Discharge Medications: New naproxen 500 mg tablet 500 mg PO BID 7 Days Qty: 14 0RF tamsulosin 0.4 mg capsule 0.4 mg PO DAILY Qty: 7 0RF prednisone 20 mg tablet 20 mg PO DAILY 5 Days Qty: 5 0RF tramadol 50 mg tablet 50 mg PO Q6H PRN (Reason: pain (scale score 1-3)) Qty: 8 0RF tamsulosin 0.4 mg capsule 0.4 mg PO BEDTIME 14 Days Qty: 14 0RF phenazopyridine [Pyridium] 100 mg tablet 100 mg PO TID PRN (Reason: Spasm) 4 Days Qty: 12 0RF naproxen 500 mg tablet 500 mg PO BID PRN (Reason: pain) 7 Days Qty: 14 0RF Discharge Orders: Discharge Order (Routine); Ordered 05/08/22 Ordered By: Jaspal Jaramillo Diet: Regular diet Activity on Discharge: As tolerated Stand Alone Forms: Patient Portal Discharge page, Work/School Release Print Language: Turkmen Activity Restrictions/Additional Instructions: Follow up with your primary care provider and a urologist. Return to the emergency department immediately if your symptoms worsen or if you develop any dizziness, shortness of breath, difficulty breathing, chest pain, blurry vision, loss of vision, nausea, vomiting, abdominal pain, fever, chills, back pain, or any other complaints. CT/CT abdomen pelvis wo IV con IMPRESSION: 1. Obstructing right ureterovesicular junction stone measuring 0.3 cm with moderate proximal right-sided hydroureter nephrosis and periureteral/perinephric stranding. ? 2. No additional renal or ureteral stone. Unremarkable urinary bladder. ? 3. Small, sliding hiatal hernia.? ? Fleischner guidelines were followed. Care Plan Goals: Stent removal in one week Health Concerns: Kidney stones Plan of Treatment: as outlined above Assessment: see discharge summary Patient Instructions: Kidney Stones (ED)
--- NOTE | 2022-05-09 11:22 | MHC.CM.PN ---
Patient is discharge home with family support and transportation.
[2022-05-09 11:38] VITALS: BP 125/63; PULSE 68; RESP 17; TEMP 36.7; O2SAT 98
--- NOTE | 2022-05-09 15:21 | PC.NURSE ---
Alert and oriented. C/O excruciating pain with urination, medicated per MAR with some effect. VSS, afebrile, no acute resp. distress noted. New order to discharge patient home. Went over discharge instructions, follow up apt and medication administrations with patient, verbalized understanding back. Walked patient to bathroom, his legs gave up assist back to bed. Patient stated I don't think I'm ready to go home today because I'm still having a lot of pain when I pee. Provider made aware. Both provider and patient are in agreement with current discharge plan. Staff transported patient to the lobby via w/c, left via car with friend.
== END 2022-05-09 15:28 | disposition home or self-care (01) | DRG 465 ==
LOC: HO.ED 05-08 01:02 → HO.EDOVER 05-08 07:16 → HO.IMC 05-08 19:08
PROVIDERS: Physician Assistant; Urology; Admitting Provider Internal Medicine; Emergency Provider Internal Medicine; Visit Provider Student in an Organized Health Care Education/Training Program
PROC: 0T768DZ Dilation of Right Ureter with Intraluminal Device, Via Natural or Artificial Opening Endoscopic (ICD-10-PCS; principal; 2022-05-08 16:00)
DX: N13.2 Hydronephrosis with renal and ureteral calculous obstruction (principal); Z20.822 Contact with and (suspected) exposure to COVID-19; Z88.0 Allergy status to penicillin; Z79.899 Other long term (current) drug therapy
CPT/HCPCS: 36415; 74176; 80048; 80076; 81001; 83605; 83690; 85025; 87040; 87635; 96372; 96374; 96375; 99285; C1758; C1769; C1894; C2617; J0696; J1200; J1885; J1956; J2250; J2270; J2405; J3010; Q9965

== ENCOUNTER → 2022-05-17 14:56 | Outpatient (BNVA) | payer BC, SELFPAY | PROVIDERS: Visit Provider Urology | DX: N20.1 Calculus of ureter (principal); N13.4 Hydroureter | CPT/HCPCS: 52310 ==

== ENCOUNTER 2022-07-31 15:51 | Outpatient (REF) | payer BC, SELFPAY ==
--- NOTE | ~2022-07-31 | US_ITS ---
EXAMINATION: US RETROPERITONEAL LIMITED (RENAL ONLY) CLINICAL INFORMATION: Calculus of ureter. COMPARISON: CT abdomen and pelvis 05/07/2022 TECHNIQUE: Real-time imaging of the kidneys. FINDINGS: RIGHT KIDNEY: 11.2 x 4.8 x 5.4 cm (SAG x AP x TRV). The kidney is normal in size, contour, and echogenicity. Renal cortical thickness is normal. No calculi or focal parenchymal lesions. No hydronephrosis. LEFT KIDNEY: 10.4 x 5.8 x 5.2 cm (SAG x AP x TRV). The kidney is normal in size, contour, and echogenicity. Renal cortical thickness is normal. No calculi or focal parenchymal lesions. No hydronephrosis. US/US renal BI IMPRESSION: Normal renal ultrasound.
== END 2022-07-31 15:52 | disposition home or self-care (01) ==
LOC: HO.US 15:51
PROVIDERS: Visit Provider Urology
DX: N20.1 Calculus of ureter (principal)
CPT/HCPCS: 76775

== ENCOUNTER 2025-08-20 05:38 | Emergency (ER) | payer BC, SELFPAY ==
--- NOTE | ~2025-08-20 | XR_ITS ---
CLINICAL HISTORY: sob 2 view chest x-ray Comparison: None provided Findings: The lungs are clear. Normal size heart. No acute fracture. IMPRESSION: 1. No acute findings. This document has been electronically signed by: Shai Sheridan MD on 08/20/2025 06:54:00
[2025-08-20 05:43] VITALS: BP 165/88; PULSE 79; RESP 18; TEMP 36.2; O2SAT 99; BMI 26.0
[2025-08-20 06:51] LABS: COVID-19 Test Negative (Negative); IDNOW Serial# 58CA691E; Influenza B2 Negative (Negative)
[2025-08-20 07:29] VITALS: BP 137/84; PULSE 71; RESP 16; TEMP 36.5; O2SAT 94
--- NOTE | 2025-08-20 07:33 | ED_ITS ---
HPI - URI/Sore Throat General Chief Complaint: Upper Respiratory Symptoms Stated Complaint: cold Time Seen by Provider: 08/20/25 06:58 Source: patient Mode of arrival: ambulatory Limitations: no limitations History of Present Illness ED Provider: DR. Hines HPI Narrative: 60-year-old male who is active smoker came in for 3-4 days of upper respiratory symptoms of sneezing, coughing with greenish sputum, no sick contacts, no recent travel. No fever, no chills. Related Data Previous Rx's ?Medication ?Instructions ?Recorded naproxen 500 mg tablet 500 mg PO BID 7 days #14 tab s 05/07/22 prednisone 20 mg tablet 20 mg PO DAILY 5 days #5 tab s 05/07/22 tamsulosin 0.4 mg capsule 0.4 mg PO DAILY #7 caps 04/27 09/17 naproxen 500 mg tablet 500 mg PO BID PRN pain 7 day s #14 05/08/22 tabs phenazopyridine 100 mg tablet 100 mg PO TID PRN Spasm 4 days #12 05/08/22 (Pyridium) tabs tamsulosin 0.4 mg capsule 0.4 mg PO BEDTIME 14 days #1 4 caps 05/08/22 tramadol 50 mg tablet 50 mg PO Q6H PRN pain (scale score 05/08/22 1-3) #8 tabs pyridoxine (vitamin B6) 100 mg 100 mg PO DAILY 90 days #90 tabs 05/17/22 tablet azithromycin 250 mg tablet See Rx Instructions PO .COM PLEX #6 08/20/25 (Zithromax Z-Manuel) tabs prednisone 20 mg tablet 20 mg PO BID #10 tabs Allergies Allergy/AdvReac Type Severity Reaction Status Date / Time Penicillins (PENICILLINS) Allergy Unknown RASH Verified 08/20/25 05:46 Review of Systems Review of Systems: All other systems are reviewed and are negative Constitutional: Reports as per HPI and Reports no additional constitutional complaints Eyes: Reports as per HPI and Reports no additional eye complaints Reports system reviewed and no additional complaints, except as documented Cardiovascular: Reports as per HPI and Reports no additional cardiovascular complaints Respiratory: Reports as per HPI and Reports no additional respiratory complaints Gastrointestinal: Reports as per HPI and Reports no additional gastrointestinal complaints Genitourinary: Reports no additional female genitourinary complaints Musculoskeletal: Reports no additional musculoskeletal complaints Skin/Breast: Reports system reviewed and no additional complaints, except as docu Psychiatric: Reports no additional psychiatric complaints Endocrine: Reports no additional endocrine complaints Hematologic/Lymphatic: Reports no additional hematologic/lymphatic complaints Allergic/Immunologic: Reports no additional allergic/immunologic complaints Reports system reviewed and no additional complaints, except as documented and Reports Abnormal speech present [facility] Past Medical History Medical History No pertinent past medical history Surgical History No pertinent past surgical history Family History Family History Other Cancer Social History Social History Household Members: Family Housing: House Do you presently have visiting nurse or other home services: No Patient Tobacco Use Status: Never used Tobacco Advance Directives: No Advance Directives Information Provided: Yes service: No Current occupational status: unemployed Physical Exam Vital Signs: Vital Signs: Last Vital Signs Temp 97.7 F 08/20/25 07:29 Pulse 71 08/20/25 07:29 Resp 16 08/20/25 07:29 BP 137/84 08/20/25 07:29 Pulse Ox 94 08/20/25 07:29 O2 Del Method Room Air 08/20/25 07:29 BMI result Body Mass Index 26.0 Vital signs have been reviewed and appear to be correct. Blood pressure elevated. Heart rate normal. Respiratory rate normal. Temperature normal. Oxygen saturation normal. Appearance: Alert. Oriented X3. No acute distress. Head: Normal external exam. Normocephalic. Atraumatic. No Wells signs noted. No raccoon eyes noted Eyes: PERRLA. EOMI. Conjunctiva and sclera normal. Eyelids normal. ENT: Pharyngeal erythema, uvula is midline, patent airway, no stridor, no TM erythema, tenderness over right maxillary sinuses with percussion. Neck: Normal inspection. Neck supple. FROM. No adenopathy. Thyroid Normal. No meningeal signs. No neck mass noted. CVS: Normal heart rate and rhythm. Heart sound normal. No murmurs noted. Pulses normal throughout. Respiratory: No respiratory distress. Painless inspiration. Breath sounds normal , mild diffuse expiratory wheezing with prolonged expiration. No accessory muscle usage noted or decreased air movement noted. Abdomen: Soft and nontender. Bowel sounds normal in all 4 quadrants. No distention noted. No organomegaly noted. No visible injury noted. Back: No CVA tenderness. Full range of motion noted. Skin: Skin warm and dry. Normal skin color. Normal skin turgor. No rashes/lesions/lacerations noted. Extremities: No lower extremity edema. Extremities exhibit normal range of mot ion. Extremities nontender. Neuro: Oriented X 3. Cranial nerve exam: II-XII are grossly intact No motor deficit. No sensory deficit. Reflexes normal. Course Reevaluation(s) Reevaluation #1: Acute upper respiratory infection, +sinusitis. Will start the patient on the Zithromax (allergic to penicillins ). Short course of 5 days of steroids. Time: 07:46 Medical Decision Making Differential Diagnosis Differential Diagnoses: The differential diagnosis associated with the presentation includes ( Sinusitis, otitis media, pneumonia, pneumothorax, pleural effusion, viral upper respiratory infection , acute bronchitis.) Admission/Observation Consideration of admission/observation: Escalation of care including admission/observation considered Lab Data MDM Lab Attestation statement: I reviewed the patient's lab results. Labs: Lab Results 08/20/25 Range/Units 05:48 COVID-19 (DAMIAN) Negative (Negative) COVID-19 Clin Com See Note Influenza Type A (ARLENE) Negative (Negative) Influenza Type B (ARLENE) Negative (Negative) Influenza A & B Note See Note Independent Interpretation I performed an independent interpretation of an: Plain X-Ray ( Chest: No acute intrathoracic pathology.) Radiology Impression Discussion of test interpretation with radiology: I have reviewed the rad iologist's reading. Discharge Plan Discharge Clinical Impression: Sinusitis, Bronchitis Patient Disposition: Home, Self-Care Instructions: Sinusitis (ED), Acute Bronchitis (ED) Prescriptions: New azithromycin [Zithromax Z-Manuel] 250 mg tablet See Rx Instructions .ROUTE .COMPLEX Qty: 6 0RF Rx Instructions: For 250 mg dose pack: take 500 mg today (day 1), then 250 mg for 4 days (days 2-5) prednisone 20 mg tablet 20 mg PO BID Qty: 10 0RF No Action naproxen 500 mg tablet 500 mg PO BID 7 Days Qty: 14 0RF tamsulosin 0.4 mg capsule 0.4 mg PO DAILY Qty: 7 0RF prednisone 20 mg tablet 20 mg PO DAILY 5 Days Qty: 5 0RF tramadol 50 mg tablet 50 mg PO Q6H PRN (Reason: pain (scale score 1-3)) Qty: 8 0RF tamsulosin 0.4 mg capsule 0.4 mg PO BEDTIME 14 Days Qty: 14 0RF phenazopyridine [Pyridium] 100 mg tablet 100 mg PO TID PRN (Reason: Spasm) 4 Days Qty: 12 0RF naproxen 500 mg tablet 500 mg PO BID PRN (Reason: pain) 7 Days Qty: 14 0RF pyridoxine (vitamin B6) 100 mg tablet 100 mg PO DAILY 90 Days Qty: 90 1RF Print Language: Albanian
[2025-08-20 08:01] VITALS: BP 137/84; PULSE 71; RESP 16; TEMP 36.5; O2SAT 94
== END 2025-08-20 08:01 | disposition home or self-care (01) ==
PROVIDERS: Emergency Provider Emergency Medicine
DX: J32.9 Chronic sinusitis, unspecified (principal); J40 Bronchitis, not specified as acute or chronic; R05.9 Cough, unspecified; Z03.818 Encounter for observation for suspected exposure to other biological agents ruled out
CPT/HCPCS: 71046; 87502; 87635; 99284

== ENCOUNTER → 2025-08-20 06:27 | Outpatient (BNV) | payer BC, SELFPAY | PROVIDERS: Emergency Provider Emergency Medicine; Visit Provider Student in an Organized Health Care Education/Training Program | DX: R06.02 Shortness of breath (principal) | CPT/HCPCS: 71046 ==